=== PATIENT | male | born 2000 | race Caucasian/White ===

== ENCOUNTER 2022-05-24 14:38 | Outpatient (REF) | payer OTHER, SELFPAY ==
[2022-05-24 16:26] LABS: Basophils Absolute Auto 0.03 K/uL (0.00-0.30); Basophils Percent Auto 0.4 % (0.0-3.0); Eosinophils Absolute Auto 0.06 K/uL (0.00-0.50); Eosinophils Percent Auto 0.8 % (0.0-7.0); Hemoglobin* 14.7 gm/dL (13.5-17.5); Immature Granulocytes Abs Auto 0.01 K/uL (0.00-0.30); Lymphocytes Absolute Auto 2.81 K/uL (0.90-2.90); Lymphocytes Percent Auto 39.7 % (20-44); Mean Corpuscular HGB Conc 34 gm/dL (32-36); Mean Corpuscular Hemoglobin 29 pg (26-34); Mean Corpuscular Volume 86 fL (80-100); Monocytes Percent Auto 7.5 % (0.0-11.0); Neutrophils Absolute Auto 3.64 K/uL (1.7-7.0); Neutrophils Percent Auto 51.5 % (42.0-72.0); Platelet Count* 253 K/uL (140-440); RDW Coefficient of Variation % 12.6 % (11.5-15.5); Red Blood Count 5.02 m/uL (4.30-5.90); White Blood Count* 7.08 K/uL (4.50-11.00)
[2022-05-24 16:27] LABS: Slide Review Reflex No
[2022-05-24 17:25] LABS: Albumin* 4.3 g/dL (3.3-5.0); Chloride* 101 mmol/L (96-114); Sodium* 139 mmol/L (135-149)
[2022-05-24 17:26] LABS: Potassium* 4.3 mmol/L (3.6-5.1)
[2022-05-24 17:28] LABS: Alkaline Phosphatase* 87 U/L (40-150); Aspartate Amino Transferase* 39 U/L (12-35); Bilirubin Total* 0.5 mg/dL (0.1-1.5); Blood Urea Nitrogen* 22 mg/dL (5-24); Carbon Dioxide* 29 mmol/L (20-32); Creatinine* 1.2 mg/dL (0.5-1.5); Estimated Glomerular Filt Rate 88 ml/min; Total Protein* 7.1 g/dL (6.0-8.3)
[2022-05-24 17:29] LABS: Alanine Aminotransferase* 31 U/L (4-50); Calcium* 9.2 mg/dL (8.4-10.6); Glucose* 114 mg/dL (60-115)
== END 2022-05-24 14:39 | disposition home or self-care (01) ==
LOC: NPINS 14:38
PROVIDERS: Visit Provider Family Medicine
DX: B36.1 Tinea nigra (principal)
CPT/HCPCS: 80053; 85025